=== PATIENT | female | born 1945 | race Caucasian/White ===

== ENCOUNTER → 2017-06-09 | Outpatient (CLI) | payer OTHER ==
[~2017-06-09] MED LIST: ALEN70TA2 PO; APR25 PO; ASPI81CH2 PO; ATOR-26 PO; CHOL1TAB42 PO; CLOP1TAB15 PO; CZR50 PO; LEVO100T7 PO; METO25TA56 PO; MIRT15TA2 PO; NTRGSL/4 UT; PANT40TA PO; TRAM-10 PO
--- NOTE | 2017-06-09 15:18 | MAMMOGRAPHY REPORT ---
BILATERAL DIGITAL SCREENING MAMMOGRAM TOMOSYNTHESIS WITH CAD: 06/09/2017 CLINICAL HISTORY: Routine screening. Patient has no complaints. TECHNIQUE: Breast tomosynthesis in addition to standard 2D mammography was performed. Current study was also evaluated with a Computer Aided Detection (CAD) system. COMPARISON: Comparison is made to exams dated: 01/18/2014 mammogram, 08/04/2012 mammogram, 05/10/2009 ma mmogram - [facility], 12/14/2007, 03/11/2006 mammogram, and 06/20/2004 mammogram - [facility]. BREAST COMPOSITION: There are scattered areas of fibroglandular density in both breasts. FINDINGS: There is a stable 3 mm circumscribed mass in the upper outer middle one third of the left breast, that is stable in size dating back to at least 01/18/2014 and also likely 05/10/2009, most li jennifer an intramammary lymph node. There are scattered stable benign-appearing microcalcifications svitlana aterally. No suspicious mass, architectural distortion or cluster of suspicious microcalcifications is seen. IMPRESSION: ACR BI-RADS CATEGORY 1: NEGATIVE There is no mammographic evidence of malignancy. A 1 year screening mammogram is recommended. The pa tient will receive written notification of the results. Approximately 10% of breast cancers are not detected with mammography. A negative mammographic report should not delay biopsy if a clinically suggestive mass is present. Katelyn Payne M.D. ay/:06/09/2017 12:12:20 Client Support Associate: Aniyah LEWIS)([place]), [facility] letter sent: Normal 1/2 BI-RADS Code: ACR BI-RADS Category 1: Negative
== END | disposition home or self-care (01) ==
LOC: C.MAMM 09:40
PROVIDERS: ATTEND Family Medicine
DX: Z12.31 Encounter for screening mammogram for malignant neoplasm of breast (principal)

== ENCOUNTER → 2017-07-15 | Day surgery (SDC) | payer OTHER ==
[2017-07-11 09:20] VITALS: Ht 157.5 cm; Wt 65.9 kg
[~2017-07-15] VITALS: Ht 157.5 cm; Wt 65.9 kg
[~2017-07-15] MED LIST changes: -CZR50 PO; +FERRTAB18 PO; +LIDOCAINE HCL 2% 2 ML VIAL (20MG/ML) ONE; +LOSA1TAB38 PO; +PROPOFOL IV EMULSION 10 MG/ML 20 ML VIAL IV ONE; +SODIUM CHLORIDE 0.9% 500ML 500 ML IV ONE; -TRAM-10 PO
--- NOTE | 2017-07-15 11:27 | Endo History and Physical ---
History & Physical Date of Service: Jul 15, 2017. Chief Complaint: iron deficiency anemia Referring Physician: Dr. Galindo History of Present Illness iron def anemia Past Medical History Angioplasty/Stent, ASHD, Reflux, High Cholesterol, Sleep Apnea, Heart Disease, Hypertension, Thyroid Disease, Depression Past Surgical History Hx Cardiac Surgery: Yes (HEART CATH, X1 STENT) Hx Internal Defibrillator: No Hx Pacemaker: No Hx Abdominal Surgery: Yes (LAP ZOE) Hx of Implantable Prosthesis: No Hx Post-Op Nausea and Vomiting: No Hx Cancer Surgery: No Hx Thoracic Surgery: No Hx Orthopedic: No Hx Urinary Tract Surgery: No Family History None Social History Smoking Status: Former Smoker Hx Substance Use: No Hx Alcohol Use: No Allergies Coded Allergies: Lisinopril (Verified Adverse Reaction, Unknown, COUGH, 07/15/17) Current Medications Reported Home Medications Medications Dose Route/Sig Max Daily Dose Days Date Category Vitron-C (Iron-Vitamin C) 1 Tab Tab 1 Tab PO BID 07/11/17 Reported Cozaar (Losartan Potassium) 100 Mg Tab 100 Mg PO QAM 07/11/17 Reported Vitamin D (Cholecalciferol) 5,000 Unit Tab 1 Tab PO QAM 11/17/15 Reported Fosamax (Alendronate Sodium) 70 Mg Tab 70 Mg PO WK 11/17/15 Reported Levothyroxine Sodium 100 Mcg Tab 1 Tab PO QAM 11/17/15 Reported Aspirin 81 Mg Chw 81 Mg PO QAM 06/14/14 Reported Protonix (Pantoprazole Sodium) 40 Mg Tab 40 Mg PO QAM 02/15/13 Reported Apresoline (Hydralazine Hcl) 25 Mg Tab 25 Mg PO TID 02/15/13 Reported Remeron Soltab (Mirtazapine) 15 Mg Soltab 15 Mg PO HS 02/15/13 Reported Lopressor (Metoprolol Tartrate) 25 Mg Tab 12.5 Mg PO BID 02/15/13 Reported Nitrostat (Nitroglycerin) 0.4 Mg Tab 0.4 Mg UT UD PRN 07/25/10 Reported Plavix (Clopidogrel Bisulfate) 75 Mg Tab 75 Mg PO QAM 07/25/10 Reported Lipitor (Atorvastatin Calcium) 80 Mg Tab 80 Mg PO HS 07/25/10 Reported Vital Signs Weight (Kilograms): 65.91 Height (Feet): 5 Height (Inches): 2 Physical Exam General Appearance: WD/WN, no apparent distress Assessment and Plan EGD and colonoscopy today
--- NOTE | 2017-07-15 12:11 | GI REPORT ---
Procedure Date: 07/15/2017 11:23 AM Procedure: Upper GI endoscopy Indications: Iron deficiency anemia Medicines: Propofol per Anesthesia Complications: No immediate complications. Estimated blood loss: Minimal. Estimated Blood Loss: Estimated blood loss was minimal. Procedure: Pre-Anesthesia Assessment: - Prior to the procedure, a History and Physical was performed, and patient medications, allergies and sensitivities were reviewed. The patient's tolerance of previous anesthesia was reviewed. - The risks and benefits of the procedure and the sedation options and risks were discussed with the patient. All questions were answered and informed consent was obtained. - Patient identification and proposed procedure were verified prior to the procedure by the physician and the nurse. The procedure was verified in the pre-procedure area in the procedure room. - Mental Status Examination: alert and oriented. Airway Examination: normal oropharyngeal airway and neck mobility. Respiratory Examination: clear to auscultation. CV Examination: normal. Abdominal Examination: bowel sounds present, abdomen soft and non-tender, no masses or organomegaly noted. - ASA Grade Assessment: III - A patient with severe systemic disease. After obtaining informed consent, the endoscope was passed under direct vision. Throughout the procedure, the patient's blood pressure, pulse, and oxygen saturations were monitored continuously. The scope was introduced through the mouth, and advanced to the third part of duodenum. The upper GI endoscopy was accomplished without difficulty. The patient tolerated the procedure well. Findings: The esophagus was normal. The stomach was normal. Scalloped mucosa was found in the entire examined duodenum. Biopsies for histology were taken with a cold forceps for evaluation of celiac disease. Verification of patient identification for the specimen was done by the physician and nurse using the patient's name and date. Estimated blood loss was minimal. Impression: - Normal esophagus. - Normal stomach. - Scalloped mucosa was found in the duodenum, suspicious for celiac disease. Biopsied. Recommendation: - Await pathology results. - Perform a colonoscopy today. Randa Ricci D.O. Randa Ricci, 07/15/2017 12:11:12 PM This report has been signed electronically. Note Initiated On: 07/15/2017 11:23 AM I attest to the content of the Intraoperative Record and orders documented therein, exceptions below
--- NOTE | 2017-07-15 12:14 | GI REPORT ---
Procedure Date: 07/15/2017 11:23 AM Procedure: Colonoscopy Indications: Iron deficiency anemia Medicines: Propofol per Anesthesia Complications: No immediate complications. Estimated blood loss: None. Estimated Blood Loss: Estimated blood loss: none. Procedure: Pre-Anesthesia Assessment: - Prior to the procedure, a History and Physical was performed, and patient medications, allergies and sensitivities were reviewed. The patient's tolerance of previous anesthesia was reviewed. - The risks and benefits of the procedure and the sedation options and risks were discussed with the patient. All questions were answered and informed consent was obtained. - Patient identification and proposed procedure were verified prior to the procedure by the physician and the nurse. The procedure was verified in the pre-procedure area in the procedure room. - Mental Status Examination: alert and oriented. Airway Examination: normal oropharyngeal airway and neck mobility. Respiratory Examination: clear to auscultation. CV Examination: normal. Abdominal Examination: bowel sounds present, abdomen soft and non-tender, no masses or organomegaly noted. - ASA Grade Assessment: III - A patient with severe systemic disease. After I obtained informed consent, the scope was passed under direct vision. Throughout the procedure, the patient's blood pressure, pulse, and oxygen saturations were monitored continuously. The scope was introduced through the anus and advanced to the terminal ileum. The colonoscopy was performed without difficulty. The patient tolerated the procedure well. The quality of the bowel preparation was good. Findings: The perianal and digital rectal examinations were normal. Pertinent negatives include normal sphincter tone and no palpable rectal lesions. The terminal ileum appeared normal. The entire examined colon appeared normal on direct and retroflexion views. Impression: - The examined portion of the ileum was normal. - The entire examined colon is normal on direct and retroflexion views. - No specimens collected. Recommendation: - Return to referring physician as previously scheduled. - Discharge patient to home. Randa Ricci D.O. Randa Ricci DO 07/15/2017 12:13:20 PM This report has been signed electronically. Note Initiated On: 07/15/2017 11:23 AM I attest to the content of the Intraoperative Record and orders documented therein, exceptions below
--- NOTE | 2017-07-15 12:16 | Discharge Instructions ---
Endoscopy Patient Instructions Date / Procedure(s) Performed Jul 15, 2017. Colonoscopy, EGD Allergy Information Coded Allergies: Lisinopril (Verified Adverse Reaction, Unknown, COUGH, 07/15/17) Discharge Date / Findings Jul 15, 2017. small bowel suspicious for celiac disease Normal colon Medication Instructions Stopped Medication(s): PATIENT COULD NOT VERBALIZE WHICH MEDS Restart Stopped Medication(s): OK to resume home medications Provider Instructions Activity Restrictions - No exercising or heavy lifting for 24 hours. - Do not drink alcohol the day of the procedure. - Do not drive a car or operate machinery until the day after the procedure. - Do not make any important decisions or sign important papers in 24 hours after the procedure. Following Day: - Return to full activity which may include returning to work/school. Diet Start your diet with liquids and light foods (jello, soup, juice, toast). Then eat your usual diet if not nauseated. Treatment For Common After Affects For mild abdominal pain, bloating, or excessive gas: - Rest - Eat lightly - Lie on right side Follow-Up Information Follow-up with Dr. Galindo as scheduled Anesthesia Information What You Should Know You have had a procedure that required some medicine to reduce anxiety and discomfort. This treatment is called moderate sedation. After receiving the treatment, you may be sleepy, but you will be able to breathe on your own. The effects of the treatment may last for several hours. Follow these instructions along with Activity/Diet recommendations noted above: * Do NOT do anything where dizziness or clumsiness would be dangerous. * Rest quietly at home today, then you can be up and about tomorrow. * Have a responsible person stay with you the rest of today. * You may have had an I.V. today. If so, you may take the dressing off later today. Recommendations Call your doctor if: * Trouble breathing * Continuous vomiting for more than 24 hours * Temperature above 101 degrees * Severe abdominal pain or bloating * Pain not relieved by pain medicine ordered * There is increased drainage or redness from any incision * A large amount of rectal bleeding greater than 2-3 tablespoons. (If you had a polyp/s removed or have hemorrhoids, a small amount of blood - from the rectum is to be expected.) * You have any unanswered questions or concerns. IN THE EVENT OF A SERIOUS EMERGENCY, GO TO THE NEAREST EMERGENCY ROOM Your discharge instructions were prepared by provider Randa Ricci. Patient Instructions Signature Page Kelley Valles Patient (or Guardian) Signature/Date: I have read and understand the instructions given to me by my caregivers. Caregiver/RN/Doctor Signature/Date: The above-named patient and/or guardian has received patient instructions on this date. + Original Patient Signature Page (only) stays with chart. Please make copy for patient.
[2017-07-15 12:44] VITALS: BP 129/65; PULSE 52; O2SAT 97
--- NOTE | 2017-07-15 14:00 | Anesthesiology Progress Note ---
Anesthesia Post Op Note Date & Time Jul 15, 2017 at 14:00 Vital Signs Pain Intensity: 0 Vital Signs Past 12 Hours Date Time Temp Pulse Resp B/P (MAP) Pulse Ox O2 Delivery O2 Flow Rate FiO2 07/15/17 12:44 52 16 129/65 (86) 97 Room Air 07/15/17 12:29 56 16 99/49 (66) 98 Room Air 07/15/17 12:14 57 16 94/48 (63) 98 Room Air 07/15/17 11:26 56 16 135/76 (95) 99 Room Air Notes Mental Status: alert / awake / arousable, participated in evaluation Pt Amnestic to Procedure: Yes Nausea / Vomiting: adequately controlled Pain: adequately controlled Airway Patency, RR, SpO2: stable & adequate BP & HR: stable & adequate Hydration State: stable & adequate Anesthetic Complications: no major complications apparent
== END | disposition home or self-care (01) ==
LOC: C.GI 10:52
PROVIDERS: ATTEND Internal Medicine
DX: E61.1 Iron deficiency (principal); I10 Essential (primary) hypertension; Z95.5 Presence of coronary angioplasty implant and graft; F32.9 Major depressive disorder, single episode, unspecified; E07.9 Disorder of thyroid, unspecified; K21.9 Gastro-esophageal reflux disease without esophagitis; I25.2 Old myocardial infarction; Z90.49 Acquired absence of other specified parts of digestive tract; Z87.891 Personal history of nicotine dependence; Z79.899 Other long term (current) drug therapy; Z98.41 Cataract extraction status, right eye; Z98.42 Cataract extraction status, left eye; Z79.82 Long term (current) use of aspirin; Z79.02 Long term (current) use of antithrombotics/antiplatelets

== ENCOUNTER 2020-07-11 20:17 | Observation (INO) ==
--- OUTSIDE RECORDS SUMMARY | 2020-07-11 20:19 | External Medical Summary | Continuity of Care Document ---
:1945 Author Name Henrietta Maddox, Provider Address Unavailable Unavailable , Care Team Providers Name Role Phone Vandana Maddox, Jose Guadalupe Unavailable [email or web address] Cardoza Unavailable Unavailable Unavailable Unavailable Unavailable Problems Active medical history not documented Allergies and Adverse Reactions Allergy history not documented Medications Medications not documented Procedures Procedures not documented Immunizations Immunizations not documented Plan of Treatment Planned Observations Planned Goals not documented Results No Known Results Results not documented
--- OUTSIDE RECORDS SUMMARY | 2020-07-11 20:20 | External Medical Summary | Continuity of Care Document ---
:1945 Author Name Henrietta Maddox, Provider Address Unavailable Unavailable , Care Team Providers Name Role Phone Vandana Maddox, Jose Guadalupe Unavailable [email or web address] Unavailable Unavailable Unavailable Unavailable Unavailable Problems Active medical history not documented Allergies and Adverse Reactions Allergy history not documented Medications Medications not documented Procedures Procedures not documented Immunizations Immunizations not documented Plan of Treatment Planned Observations Planned Goals not documented Results No Known Results Results not documented
[2020-07-11 21:13] LABS: Basophils # (auto) 0.04 K/uL (0-0.2); Basophils % (auto) 0.5 %; Eosinophils # (auto) 0.05 K/uL (0-0.5); Eosinophils % (auto) 0.6 %; Hematocrit (blood only) 39.2 % (37-47); Hemoglobin 12.3 g/dL (12.0-16.0); Immature Granulocytes # (auto) 0.01 K/uL (0.00-0.02); Immature Granulocytes % (auto) 0.1 %; Lymphocytes # (auto) 1.87 K/uL (1.2-3.4); Lymphocytes % (auto) 23.7 %; Mean Corpuscular Hemoglobin 24.5 pg (25-34); Mean Corpuscular Hgb Conc 31.4 g/dL (32-36); Mean Corpuscular Volume 77.9 fL (80-100); Mean Platelet Volume 11.2 fL (7.4-10.4); Monocytes # (auto) 0.78 K/uL (0.11-0.59); Monocytes % (auto) 9.9 %; Neutrophils # (auto) 5.15 K/uL (1.4-6.5); Neutrophils % (auto) 65.2 %; Platelet Count 250 K/uL (130-400); RDW Coefficient of Variation 16.9 % (11.5-14.5); RDW Standard Deviation 48.1 fL (36.4-46.3); Red Blood Count 5.03 M/uL (4.2-5.4)
[2020-07-11 21:21] LABS: Alanine Aminotransferase 24 U/L (12-78); Albumin Level 3.4 gm/dl (3.4-5.0); Aspartate Aminotransferase 17 U/L (15-37); BUN Creatinine Ratio 18.7 (10-20); Blood Urea Nitrogen 13 mg/dl (7-18); Calcium 9.4 mg/dl (8.5-10.1); Carbon Dioxide 26 mmol/L (21-32); Chloride 107 mmol/L (98-107); Creatinine Clr Calc Pharmacy 57.4 ml/min; Est GFR (Non-African American) 84.6; Glucose 84 mg/dl (70-99); Potassium 3.6 mmol/L (3.5-5.1); Sodium 139 mmol/L (136-145)
[2020-07-11 21:25] LABS: Alkaline Phosphatase 91 U/L (45-117); Bilirubin,Total 0.4 mg/dl (0.2-1); Globulin 3.5 gm/dl (2.5-4.0); Total Protein 6.9 gm/dl (6.4-8.2); Troponin I < 0.015 ng/ml (0-0.045)
[2020-07-11 21:35] LABS: INR 1.1 (0.9-1.1); Partial Thromboplastin Ratio 1.1; Partial Thromboplastin Time 29.1 Seconds (21.0-31.0); Prothrombin Time 10.9 Seconds (9.0-12.0)
[2020-07-11] MEDS ORDERED: ASPIRIN CHEW 324 MG PO STA (21:37)
[2020-07-11] MEDS ORDERED: NITROGLYCERIN 2% OINTMENT 30GM TUBE EXT STA (21:37)
--- NOTE | 2020-07-11 21:37 | Emergency Department Note ---
Impression & Plan Chest pain ED Provider Note INFORMANT: Patient ED PROVIDER(S): Orville Garcia MD CHIEF COMPLAINT: Chest pain PLAN: Disposition: Admitted Condition: Good Outpatient prescription management: none Referral: None MEDICAL DECISION MAKING: Patient presented with concerning history of chest pain. She has known coronary disease. She is a smoker. Her ECG and laboratory testing did not reveal any obvious findings. The patient had a negative chest x-ray for any acute disease. I discussed further management in the hospital. She was given Nitropaste and aspirin. Consultation was made with Dr. Donte Santoyo, [facility] hospitalist service. The patient was evaluated in the ER admitted for further management. Triage Nursing notes reviewed and agree them. Additional history obtained from family Vital Signs: reviewed and remarkable for hypertension Differential diagnosis: Cardiac ischemia, aortic dissection, pulmonary embolism, pneumothorax, pneumonia, pericarditis, myocarditis, esophageal rupture, GERD, cholecystitis, pancreatitis, musculoskeletal, as well as other pathologies. Diagnostics interpreted by me: ECG: Twelve-lead ECG reveals sinus rhythm at 65 bpm. PACs present. No ST elevation or depression. Normal QRS and axis. Cardiac Monitoring: Cardiac monitoring ordered by me: The patient was placed on continuous cardiac monitoring and observed. It revealed a normal sinus rhythm at 61 beats per minute without ectopy or evidence of dysrhythmia. Imaging studies: Chest x-ray. Findings: A chest x-ray was performed and revealed no pneumothorax, effusion, infiltrate, pulmonary edema, free air under the diaphragm, or wide mediastinum. Impression: No acute disease. [facility]: The patient is a 75 year old female who presents to the Emergency Room with complaints of chest pain, substernal. This started yesterday and is fluctuating. The patient also notes the following associated symptoms, chills. The patient has taken no medication for relieving factors. Current pain is rated as 0/10. Pain at home was 5/10 Pt denies LOC, headache, fevers, chills, diaphoresis, visual changes, neck pain, breathing difficulties, nausea, vomiting, abdominal pain, back pain, melena, hematochezia, urinary symptoms, numbness, weakness, lymphadenopathy, rash, or other complaints. ROS: See above HPI for pertinent positives & negatives. A total of 10 systems reviewed and were otherwise negative. PAST MEDICAL HISTORY:See Below , CAD PAST SURGICAL HISTORY:See Below, stent FAMILY HISTORY:See Below SOCIAL HISTORY:See Below, +tobacco HOME MEDICATIONS:See Below ALLERGIES:See Below VITALS:See Below PHYSICAL EXAMINATION: GENERAL: Awake, alert, well-appearing, in no distress HENT: Normocephalic, atraumatic. Oropharynx unremarkable. EYES: Normal conjunctiva. Sclera non-icteric. NECK: Inspection normal. Non-tender. Supple. No nuchal rigidity. FROM. No m asses. RESPIRATORY: Clear to auscultation. No wheezes. No rales. Normal respiratory effort. CARDIAC: Normal rate. Normal rhythm. No murmurs. No rubs. Extremities warm and well perfused. Pulses equal. No JVD. GI: Soft, non-distended. No tenderness to palpation. No rebound or guarding. No masses. RECTAL: Deferred. MUSCULOSKELETAL: Atraumatic. Chest examination reveals no tenderness. The back is symmetrical on inspection without obvious abnormality. There is no CVA tenderness to palpation. No joint edema. LOWER EXTREMITIES: Calves are equal size bilaterally and non-tender. No edema. No discoloration. NEURO: Normal sensorium. No sensory or motor deficits noted. SKIN: No rash or jaundice noted. Orville Garcia MD Past Med/Surg History Social History Smoking Status: Current every day smoker Cigarettes Per Day: 8; Do You Dip or Chew Tobacco: No; Hx Alcohol Use: No Hx Substance Use: No Preferred Language: Malay Communication Ability: Effective Milk Treater Required: No Beliefs That Will Affect Care: None Current Living Situation: Alone Other Information That Helps Us Care for You: No Feels Safe at Home: Yes Safety Concerns: Feels Safe At This Time Assistive Devices: None Allergies Allergies Allergy/AdvReac Type Severity Reaction Status Date / Time lisinopril AdvReac Unknown Cough Verified 07/11/20 21:51 Home Meds Home Medications Medication Instructions Recorded Confirmed alendronate 70 mg PO WK 07/11/20 07/11/20 aspirin [Aspirin Low Dose] 81 mg PO QAM 07/11/20 07/11/20 atorvastatin 80 mg PO HS 07/11/20 07/11/20 ferrous sulfate [iron] 325 mg PO BIDM 07/11/20 07/11/20 levothyroxine 100 mcg PO QAM 07/11/20 07/11/20 losartan 100 mg PO QAM 07/11/20 07/11/20 metoprolol succinate 12.5 mg PO QAM 07/11/20 07/11/20 mirtazapine 15 mg PO HS 07/11/20 07/11/20 nitroglycerin 0.4 mg SUBLINGUAL DIRECTED PRN 07/11/20 07/11/20 pantoprazole 40 mg PO QAM 07/11/20 07/11/20 tramadol 50 mg PO DIRECTED PRN 07/11/20 07/11/20 Previous Rx's Medication Instructions Recorded hydralazine 75 mg PO TID 14 Days #126 tab 07/12/20 Results & Data (ED) Vital Signs Vital Signs - 24 hr 07/11/20 20:20 07/11/20 21:01 Temperature 36.5 C Temperature Source Temporal Artery Scan Pulse Rate 69 Respiratory Rate 24 Blood Pressure 203/84 H Blood Pressure Mean 123 Pulse Oximetry 99 Oxygen Delivery Method Room Air Room Air Sepsis New/Unexplained Change in Mental Status N/A Sepsis Action Taken by Nursing No Action Required Laboratory Data Result diagrams: 07/12/20 05:38 07/12/20 05:38 Lab Results 07/11/20 07/11/20 07/11/20 Range/Units 20:58 20:58 20:58 WBC 7.90 (4.8-10.8) K/uL RBC 5.03 (4.2-5.4) M/uL Hgb 12.3 (12.0-16.0) g/dL Hct 39.2 (37-47) % MCV 77.9 L (80-100) fL MCH 24.5 L (25-34) pg MCHC 31.4 L (32-36) g/dL RDW Std Deviation 48.1 H (36.4-46.3) fL RDW Coeff of Madeleine 16.9 H (11.5-14.5) % Plt Count 250 (130-400) K/uL MPV 11.2 H (7.4-10.4) fL Immature Gran % (Auto) 0.1 % Neut % (Auto) 65.2 % Lymph % (Auto) 23.7 % Campbell % (Auto) 9.9 % Eos % (Auto) 0.6 % Baso % (Auto) 0.5 % Neut # (Auto) 5.15 (1.4-6.5) K/uL Lymph # (Auto) 1.87 (1.2-3.4) K/uL Campbell # (Auto) 0.78 H (0.11-0.59) K/uL Eos # (Auto) 0.05 (0-0.5) K/uL Baso # (Auto) 0.04 (0-0.2) K/uL Immature Gran # (Auto) 0.01 (0.00-0.02) K/uL PT 10.9 (9.0-12.0) Seconds INR 1.1 (0.9-1.1) APTT 29.1 (21.0-31.0) Seconds PTT Ratio 1.1 Sodium 139 (136-145) mmol/L Potassium 3.6 (3.5-5.1) mmol/L Chloride 107 (98-107) mmol/L Carbon Dioxide 26 (21-32) mmol/L Anion Gap 5.0 (3-11) BUN 13 (7-18) mg/dl Creatinine 0.69 (0.6-1.2) mg/dl Est Cr Clr Drug Dosing 57.4 ml/min Est GFR ( Amer) 98.0 Est GFR (Non-Af Amer) 84.6 BUN/Creatinine Ratio 18.7 (10-20) Glucose 84 (70-99) mg/dl Calcium 9.4 (8.5-10.1) mg/dl Magnesium (1.8-2.4) mg/dl Total Bilirubin 0.4 (0.2-1) mg/dl AST 17 (15-37) U/L ALT 24 (12-78) U/L Alkaline Phosphatase 91 (45-117) U/L Troponin I < 0.015 (0-0.045) ng/ml Total Protein 6.9 (6.4-8.2) gm/dl Albumin 3.4 (3.4-5.0) gm/dl Globulin 3.5 (2.5-4.0) gm/dl Albumin/Globulin Ratio 1.0 (0.9-2) Lipase (73-393) U/L COVID-19 Eval Order SARS-CoV-2, RNA, NAAT (NEGATIVE) 03/07/11/20 07/11/20 Range/Units 20:58 22:21 22:21 WBC (4.8-10.8) K/uL RBC (4.2-5.4) M/uL Hgb (12.0-16.0) g/dL Hct (37-47) % MCV (80-100) fL MCH (25-34) pg MCHC (32-36) g/dL RDW Std Deviation (36.4-46.3) fL RDW Coeff of Madeleine (11.5-14.5) % Plt Count (130-400) K/uL MPV (7.4-10.4) fL Immature Gran % (Auto) % Neut % (Auto) % Lymph % (Auto) % Campbell % (Auto) % Eos % (Auto) % Baso % (Auto) % Neut # (Auto) (1.4-6.5) K/uL Lymph # (Auto) (1.2-3.4) K/uL Campbell # (Auto) (0.11-0.59) K/uL Eos # (Auto) (0-0.5) K/uL Baso # (Auto) (0-0.2) K/uL Immature Gran # (Auto) (0.00-0.02) K/uL PT (9.0-12.0) Seconds INR (0.9-1.1) APTT (21.0-31.0) Seconds PTT Ratio Sodium (136-145) mmol/L Potassium (3.5-5.1) mmol/L Chloride (98-107) mmol/L Carbon Dioxide (21-32) mmol/L Anion Gap (3-11) BUN (7-18) mg/dl Creatinine (0.6-1.2) mg/dl Est Cr Clr Drug Dosing ml/min Est GFR ( Amer) Est GFR (Non-Af Amer) BUN/Creatinine Ratio (10-20) Glucose (70-99) mg/dl Calcium (8.5-10.1) mg/dl Magnesium 1.9 (1.8-2.4) mg/dl Total Bilirubin (0.2-1) mg/dl AST (15-37) U/L ALT (12-78) U/L Alkaline Phosphatase (45-117) U/L Troponin I (0-0.045) ng/ml Total Protein (6.4-8.2) gm/dl Albumin (3.4-5.0) gm/dl Globulin (2.5-4.0) gm/dl Albumin/Globulin Ratio (0.9-2) Lipase 175 (73-393) U/L COVID-19 Eval Order Covid19 IDNow atMUTC SARS-CoV-2, RNA, NAAT NEGATIVE (NEGATIVE) Administered Medications Discontinued Medications Aspirin (Aspirin Chew 324 Mg) 243 mg PO NOW STA Stop: 07/11/20 21:38 Last Admin: 07/11/20 22:17 Dose: 243 mg Documented by: [id number] Aspirin (Aspirin 81 Mg Ectab) 81 mg PO QAM [facility] Stop: 08/11/20 08:59 Last Admin: 07/12/20 07:54 Dose: 81 mg Documented by: [id number] Enoxaparin Sodium (Enoxaparin Inj 30 Mg/0.3 Ml Syr) 30 mg SQ QAM [facility] Stop: 08/11/20 08:59 Last Admin: 07/12/20 07:55 Dose: 30 mg Documented by: [id number] Ferrous Sulfate (Ferrous Sulfate 325 Mg Tab) 325 mg PO BIDM [facility] Stop: 08/11/20 07:59 Last Admin: 07/12/20 07:55 Dose: 325 mg Documented by: [id number] Hydralazine HCl (Hydralazine Tab 50 Mg Tab) 50 mg PO NOW STA Stop: 07/11/20 22:22 Last Admin: 07/11/20 23:09 Dose: 50 mg Documented by: [id number] Hydralazine HCl (Hydralazine Tab 50 Mg Tab) 50 mg PO TID [place] Stop: 08/11/20 08:59 Last Admin: 07/12/20 07:53 Dose: 50 mg Documented by: [id number] Hydralazine HCl (Hydralazine Hcl 25 Mg Tab) 75 mg PO TID [facility] Stop: 08/11/20 13:59 Last Admin: 07/12/20 13:36 Dose: 75 mg Documented by: [id number] Hydralazine HCl (Hydralazine Hcl 25 Mg Tab) 25 mg PO NOW STA Stop: 07/12/20 10:15 Last Admin: 07/12/20 10:40 Dose: 25 mg Documented by: [id number] Potassium Chloride 40 meq/ (Dextrose/Sodium Chloride) 1,020 mls @ 40 mls/hr IV .Q24H [facility] Stop: 08/11/20 00:53 Last Admin: 07/12/20 01:31 Dose: 40 mls/hr Documented by: [id number] Levothyroxine Sodium (Levothyroxine Sodium 100 Mcg Tablet) 100 mcg PO DAILYBB [facility] Stop: 08/11/20 06:29 Last Admin: 07/12/20 05:46 Dose: 100 mcg Documented by: [id number] Losartan Potassium (Losartan Potassium 50 Mg Tab) [facility]: 08/11/20 01:04 Last Admin: 07/12/20 01:52 Dose: 100 mg Documented by: [id number] Metoprolol Succinate (Metoprolol Succ 25mg Ext Rel Tab) 12.5 mg PO [facility] Stop: 08/11/20 08:59 Last Admin: 07/12/20 07:54 Dose: 12.5 mg Documented by: [id number] Mirtazapine (Mirtazapine Tab 15 Mg Tab) 15 mg PO [facility] Stop: 08/11/20 00:53 Last Admin: 07/12/20 01:52 Dose: 15 mg Documented by: [id number] Nitroglycerin (Nitroglycerin 2% Ointment 30gm Tube) 0.5 inch EXT NOW STA Stop: 07/11/20 21:38 Last Admin: 07/11/20 22:17 Dose: 0.5 inch Documented by: [id number] Pantoprazole Sodium (Pantoprazole 40 Mg Tab) [facility]: 08/11/20 01:04 Last Admin: 07/12/20 01:52 Dose: 40 mg Documented by: [id number] Discharge Plan Visit Data Chief Complaint: Chest Pain Stated Complaint: CHEST PAIN, ARM PAIN ED Provider: Orville Garcia Discharge Problem: Chest pain Patient Disposition: Admitted As Inpatient Discharge Instructions Interventions: ED Discharge Assessment Last Done: 07/12/20 00:08
[2020-07-11 22:03] LABS: Magnesium 1.9 mg/dl (1.8-2.4)
[2020-07-11] MEDS ORDERED: hydrALAZINE TAB 50 MG TAB PO STA (22:21)
--- NOTE | 2020-07-11 22:24 | History & Physical Report ---
Date of Service July 11, 2020 Assessment & Plan (1) Chest pain: Possibly secondary to hypertensive crisis Rule out ACS History CAD sp stent diastolic dysfunction as per records, patient euvolemic hx PVD LORENA (CPAP intolerance) hypothyroidism, euthyroid as of recent outpatient TSH ongoing tobacco abuse OBS PCU Continue home aspirin for CAD prevention Titrate home BP meds Follow troponin IV heparin if with troponin progression Cardiology consult RE chest pain, history of CAD N.p.o. after midnight in anticipation of procedure Patient to discuss with PCP about follow-up referral with sleep medicine to discuss newer options for LORENA given claustrophobia from old CPAP machines. Nicotine patch as needed DVT prophylaxis per Lovenox subcu Full code Patient son requesting updates from providers. Mr. Teddy Valles, contact #[phone]. Text document was generated using [employer] voice recognition software. It may contain grammatical or spelling errors. Kindly contact undersigned for clarification of any documentation item in question. History of Present Illness Chief Complaint: Chest pain Primary Care Provider: Dr. Lala History obtained from patient, family, and records. Medical history significant for diastolic dysfunction as per records, CAD status post stent, PVD as per records, PFO as per records, hypertension, hyperlipidemia, LORENA (CPAP intolerance), GERD, hypothyroidism, ongoing tobacco abuse. Last confinement June [address] [place]. Found to have LAD occlusion status post JOY placement. 1 day history of substernal discomfort, indigestion-like not exactly like episode from past heart attack, somewhat different from reflux. No cough, no S OB. SBP 200s at the ER. Patient does not check blood pressure at home. Denies unusual stress. Compliant with home medications. Denies OTC NSAID intake, dietary indiscretion. Spontaneous resolution of chest pain at the ER. Patient refused nitro medication prescribed by ER provider. Medical History as above Surgical History : BTL, laryngeal polyp removal, cataract surgery, cholecystectomy Family History : Breast cancer, stomach cancer, heart disease, MS Personal/Social history : 8 cigarettes a day, no EtOH intake, homemaker in her younger years Allergies Allergy/AdvReac Type Severity Reaction Status Date / Time lisinopril AdvReac Unknown Cough Verified 07/11/20 21:51 Home Medications Medication Instructions Recorded Confirmed Type alendronate 70 mg PO WK 07/11/20 07/11/20 History aspirin [Aspirin Low Dose] 81 mg PO QAM 07/11/20 07/11/20 History atorvastatin 80 mg PO HS 07/11/20 07/11/20 History ferrous sulfate [iron] 325 mg PO BIDM 07/11/20 07/11/20 History hydralazine 25 mg PO TID 07/11/20 07/11/20 History levothyroxine 100 mcg PO QAM 07/11/20 07/11/20 History losartan 100 mg PO QAM 07/11/20 07/11/20 History metoprolol succinate 12.5 mg PO QAM 07/11/20 07/11/20 History mirtazapine 15 mg PO HS 07/11/20 07/11/20 History nitroglycerin 0.4 mg SUBLINGUAL DIRECTED PRN 07/11/20 07/11/20 History pantoprazole 40 mg PO QAM 07/11/20 07/11/20 History tramadol 50 mg PO DIRECTED PRN 07/11/20 07/11/20 History Past Med/Surg History Social History Smoking Status: Current every day smoker Cigarettes Per Day: 8; Do You Dip or Chew Tobacco: No; Hx Alcohol Use: No Hx Substance Use: No Preferred Language: Latvian Communication Ability: Effective Shipyard Helper Required: No Beliefs That Will Affect Care: None Current Living Situation: Alone Other Information That Helps Us Care for You: No Feels Safe at Home: Yes Safety Concerns: Feels Safe At This Time Assistive Devices: Denture - Upper, Denture - Lower and Glasses Review of Systems Review of Systems: As per HPI, all 10 systems reviewed, all other ROS negative Physical Exam Physical Exam: GENERAL: Comfortable, pleasant, slightly anxious, no respiratory distress SKIN: Normal color, warm HEENT: Bespectacled, Dana palpebral conjunctivae, no ptosis, moist buccal mucosa NECK : Supple, no tenderness CHEST : Decreased breath sounds, no tenderness HEART : RRR, no obvious murmurs ABDOMEN: Some distention, nontender EXTREMITIES : No LE swelling/tenderness, no other conspicuous deformities noted NEUROLOGIC : Coherent, no facial asymmetry, no other gross focality Results & Data Results & Data ([facility]) Vital Signs (Past 12 Hours) Vital Signs Temp Pulse Resp BP Pulse Ox 07/11/20 20:20 36.5 C 69 24 203/84 H 99 Laboratory Results Laboratory Results WBC 7.90 K/uL (4.8-10.8) 07/11/20 20:58 RBC 5.03 M/uL (4.2-5.4) 07/11/20 20:58 Hgb 12.3 g/dL (12.0-16.0) 07/11/20 20:58 Hct 39.2 % (37-47) 07/11/20 20:58 MCV 77.9 fL (80-100) L 07/11/20 20:58 MCH 24.5 pg (25-34) L 07/11/20 20:58 MCHC 31.4 g/dL (32-36) L 07/11/20 20:58 RDW Std Deviation 48.1 fL (36.4-46.3) H 07/11/20 20:58 RDW Coeff of Madeleine 16.9 % (11.5-14.5) H 07/11/20 20:58 Plt Count 250 K/uL (130-400) 07/11/20 20:58 MPV 11.2 fL (7.4-10.4) H 07/11/20 20:58 Immature Gran % (Auto) 0.1 % 07/11/20 20:58 Neut % (Auto) 65.2 % 07/11/20 20:58 Lymph % (Auto) 23.7 % 07/11/20 20:58 [place] % (Auto) 9.9 % 07/11/20 20:58 Eos % (Auto) 0.6 % 07/11/20 20:58 Baso % (Auto) 0.5 % 07/11/20 20:58 Neut # (Auto) 5.15 K/uL (1.4-6.5) 07/11/20 20:58 Lymph # (Auto) 1.87 K/uL (1.2-3.4) 07/11/20 20:58 [place] # (Auto) 0.78 K/uL (0.11-0.59) H 07/11/20 20:58 Eos # (Auto) 0.05 K/uL (0-0.5) 07/11/20 20:58 Baso # (Auto) 0.04 K/uL (0-0.2) 07/11/20 20:58 Immature Gran # (Auto) 0.01 K/uL (0.00-0.02) 07/11/20 20:58 PT 10.9 Seconds (9.0-12.0) 07/11/20 20:58 INR 1.1 (0.9-1.1) 07/11/20 20:58 APTT 29.1 Seconds (21.0-31.0) 07/11/20 20:58 PTT Ratio 1.1 07/11/20 20:58 Sodium 139 mmol/L (136-145) 07/11/20 20:58 Potassium 3.6 mmol/L (3.5-5.1) 07/11/20 20:58 Chloride 107 mmol/L (98-107) 07/11/20 20:58 Carbon Dioxide 26 mmol/L (21-32) 07/11/20 20:58 Anion Gap 5.0 (3-11) 07/11/20 20:58 BUN 13 mg/dl (7-18) 07/11/20 20:58 Creatinine 0.69 mg/dl (0.6-1.2) 07/11/20 20:58 Est Cr Clr Drug Dosing 57.4 ml/min 07/11/20 20:58 Est GFR ( Amer) 98.0 07/11/20 20:58 Est GFR (Non-Af Amer) 84.6 07/11/20 20:58 BUN/Creatinine Ratio 18.7 (10-20) 07/11/20 20:58 Glucose 84 mg/dl (70-99) 07/11/20 20:58 Calcium 9.4 mg/dl (8.5-10.1) 07/11/20 20:58 Magnesium 1.9 mg/dl (1.8-2.4) 07/11/20 20:58 Total Bilirubin 0.4 mg/dl (0.2-1) 07/11/20 20:58 AST 17 U/L (15-37) 07/11/20 20:58 ALT 24 U/L (12-78) 07/11/20 20:58 Alkaline Phosphatase 91 U/L (45-117) 07/11/20 20:58 Troponin I < 0.015 ng/ml (0-0.045) 07/11/20 20:58 Total Protein 6.9 gm/dl (6.4-8.2) 07/11/20 20:58 Albumin 3.4 gm/dl (3.4-5.0) 07/11/20 20:58 Globulin 3.5 gm/dl (2.5-4.0) 07/11/20 20:58 Albumin/Globulin Ratio 1.0 (0.9-2) 07/11/20 20:58 Diagnostic Findings Chest x-ray as per my interpretation borderline cardiomegaly EKG as per my interpretation : Rate 55, sinus bradycardia, normal axis, no ischemia
[2020-07-12] MEDS ORDERED: NITROGLYCERIN SL 0.4 MG/TAB TAB SL PRN (00:54)
[2020-07-12] MEDS ORDERED: MIRTAZAPINE TAB 15 MG TAB PO SCH (00:54)
[2020-07-12] MEDS ORDERED: ACETAMINOPHEN 325 MG TAB PO PRN (00:54)
[2020-07-12] MEDS ORDERED: traMADol HCL 50 MG TABLET PO PRN (00:54)
[2020-07-12] MEDS ORDERED: LORazepam 0.25 MG/0.5 ML VIAL IV PRN (00:54)
[2020-07-12] MEDS ORDERED: POTASSIUM CHLORIDE 40 MEQ in D5W AND NSS 1,000 ML IV SCH (00:54)
[2020-07-12] MEDS ORDERED: MoRPHine SULFATE 2 MG/ML CARP IV PRN (00:54)
[2020-07-12] MEDS ORDERED: PROMETHAZINE HCL 6.25 MG in SODIUM CHLORIDE 0.9% 50 ML IV PRN (00:54)
[2020-07-12] MEDS ORDERED: LOSARTAN POTASSIUM 50 MG TAB PO SCH ×2 (01:05→09:00)
[2020-07-12] MEDS ORDERED: PANTOprazole 40 MG TAB PO SCH ×2 (01:05→09:00)
[2020-07-12 05:59] LABS: Basophils # (auto) 0.02 K/uL (0-0.2); Basophils % (auto) 0.3 %; Eosinophils # (auto) 0.03 K/uL (0-0.5); Eosinophils % (auto) 0.5 %; Hematocrit (blood only) 36.9 % (37-47); Hemoglobin 11.5 g/dL (12.0-16.0); Immature Granulocytes # (auto) 0.01 K/uL (0.00-0.02); Immature Granulocytes % (auto) 0.2 %; Lymphocytes # (auto) 2.16 K/uL (1.2-3.4); Lymphocytes % (auto) 32.6 %; Mean Corpuscular Hemoglobin 24.1 pg (25-34); Mean Corpuscular Hgb Conc 31.2 g/dL (32-36); Mean Corpuscular Volume 77.4 fL (80-100); Mean Platelet Volume 10.6 fL (7.4-10.4); Monocytes # (auto) 0.67 K/uL (0.11-0.59); Monocytes % (auto) 10.1 %; Neutrophils # (auto) 3.74 K/uL (1.4-6.5); Neutrophils % (auto) 56.3 %; Platelet Count 245 K/uL (130-400); RDW Coefficient of Variation 16.6 % (11.5-14.5); RDW Standard Deviation 47.5 fL (36.4-46.3); Red Blood Count 4.77 M/uL (4.2-5.4); White Blood Count 6.63 K/uL (4.8-10.8)
[2020-07-12 06:06] LABS: Partial Thromboplastin Ratio 1.1; Partial Thromboplastin Time 28.3 Seconds (21.0-31.0)
[2020-07-12] MEDS ORDERED: LEVOTHYROXINE SODIUM 100 MCG TABLET PO SCH (06:30)
[2020-07-12 06:40] LABS: Calcium 8.2 mg/dl (8.5-10.1); Creatinine Clr Calc Pharmacy 67.1 ml/min; Est GFR (African American) 103.2; Potassium 3.7 mmol/L (3.5-5.1)
--- NOTE | 2020-07-12 07:54 | Hospitalist Progress Note ---
Date of Service July 12, 2020 Assessment & Plan (1) Chest pain: Secondary to hypertensive crisis Rule out ACS History CAD sp stent Continue home aspirin for CAD prevention Titrate home BP meds Troponin x3 negative Echo obtained -LV is normal in size, moderate concentric LVH, LV wall motion is normal, EF 65 to 70%. Grade 1 diastolic dysfunction. Aortic valve sclerosis mild, without significant aortic valvular stenosis. There is no other significant valvular disease. Cardiology consult RE chest pain, history of CAD Patient presented with hypertensive urgency associated with chest discomfort. Responded well to increased dose of hydralazine. Ischemic evaluation unremarkable with negative troponin, unremarkable EKG and no wall motion abnormality on echo. Recommend to discharge on increased dose of hydralazine 75 mg 3 times daily. Close follow-up with PCP and cardiology. Recommend BP checks at home. Diastolic dysfunction as per records, patient euvolemic Hx PVD LORENA - Patient to discuss with PCP about follow-up referral with sleep medicine to discuss newer options for LORENA given claustrophobia from old CPAP machines. Ongoing tobacco abuse - Nicotine patch as needed Hypothyroidism, euthyroid as of recent outpatient TSH DVT prophylaxis per Lovenox subcu Full code Patient's son ,Mr. Teddy Valles, can be reached at #[phone]. Admission and Anticipated Discharge Date Admission Date: July 11, 2020 Subjective Patient seen in follow-up of chest pain, hypertension/hypertensive urgency Currently she is lying in bed in no acute distress Denies any chest pain or shortness of breath, dizziness or lightheadedness Review of Systems Review of Systems: All systems reviewed & are unremarkable except as noted in HPI & below Constitutional: no fever and no chills Respiratory: no cough and no dyspnea Cardiovascular: no chest pain and no palpitations Gastrointestinal: no abdominal pain and no vomiting Physical Exam Physical Exam: GENERAL: Comfortable, pleasant female in no respiratory distress HEENT: NC/AT, Bespectacled, [place] palpebral conjunctivae, no ptosis, moist buccal mucosa NECK : Supple, no tenderness CHEST : CTAB, no tenderness HEART : RRR, + syst. murmur ABDOMEN: Some distention, nontender, nondistended, + bowel sounds EXTREMITIES : No LE swelling/tenderness, moves extremities spontaneously NEUROLOGIC : Alert and oriented x3, no facial asymmetry, no other gross focality, moves extremities spontaneously SKIN: Normal color, warm Results & Data Results & Data ([place]) Vital Signs (Past 12 Hours) Vital Signs Temp Pulse Pulse Resp BP BP BP 07/12/20 07:36 36.5 C 57 L 20 149/68 H 07/12/20 04:11 36.5 C 59 L 16 135/72 07/12/20 02:21 66 07/12/20 00:39 36.4 C L 65 20 180/74 H 07/11/20 20:20 36.5 C 69 24 203/84 H Pulse Ox 07/12/20 07:36 98 07/12/20 04:11 97 07/12/20 02:21 07/12/20 00:39 99 07/11/20 20:20 99 Laboratory Results 07/12/20 07/12/20 07/12/20 Range/Units 05:38 05:38 05:38 WBC (4.8-10.8) K/uL RBC (4.2-5.4) M/uL Hgb (12.0-16.0) g/dL Hct (37-47) % MCV (80-100) fL MCH (25-34) pg MCHC (32-36) g/dL RDW Std Deviation (36.4-46.3) fL RDW Coeff of Madeleine (11.5-14.5) % Plt Count (130-400) K/uL MPV (7.4-10.4) fL Immature Gran % (Auto) % Neut % (Auto) % Lymph % (Auto) % [place] % (Auto) % Eos % (Auto) % Baso % (Auto) % Neut # (Auto) (1.4-6.5) K/uL Lymph # (Auto) (1.2-3.4) K/uL [place] # (Auto) (0.11-0.59) K/uL Eos # (Auto) (0-0.5) K/uL Baso # (Auto) (0-0.2) K/uL Immature Gran # (Auto) (0.00-0.02) K/uL PT (9.0-12.0) Seconds INR (0.9-1.1) APTT 28.3 (21.0-31.0) Seconds PTT Ratio 1.1 Sodium 141 (136-145) mmol/L Potassium 3.7 (3.5-5.1) mmol/L Chloride 111 H (98-107) mmol/L Carbon Dioxide 28 (21-32) mmol/L Anion Gap 2.0 L (3-11) BUN 13 (7-18) mg/dl Creatinine 0.59 L (0.6-1.2) mg/dl Est Cr Clr Drug Dosing 67.1 ml/min Est GFR ( Amer) 103.2 Est GFR (Non-Af Amer) 89.0 BUN/Creatinine Ratio 22.0 H (10-20) Glucose 90 (70-99) mg/dl Calcium 8.2 L (8.5-10.1) mg/dl Magnesium (1.8-2.4) mg/dl Total Bilirubin (0.2-1) mg/dl AST (15-37) U/L ALT (12-78) U/L Alkaline Phosphatase (45-117) U/L Troponin I Pending (0-0.045) ng/ml Total Protein (6.4-8.2) gm/dl Albumin (3.4-5.0) gm/dl Globulin (2.5-4.0) gm/dl Albumin/Globulin Ratio (0.9-2) Triglycerides 79 (0-150) mg/dl Cholesterol 101 (0-200) mg/dl LDL Cholesterol, Calc 49 mg/dl VLDL Cholesterol, Calc 16 mg/dl HDL Cholesterol 36 mg/dl Cholesterol/HDL Ratio 3 Lipase (73-393) U/L COVID-19 Eval Order SARS-CoV-2, RNA, NAAT (NEGATIVE) 07/12/20 07/12/20 07/11/20 Range/Units 05:38 00:48 22:21 WBC 6.63 (4.8-10.8) K/uL RBC 4.77 (4.2-5.4) M/uL Hgb 11.5 L (12.0-16.0) g/dL Hct 36.9 L (37-47) % MCV 77.4 L (80-100) fL MCH 24.1 L (25-34) pg MCHC 31.2 L (32-36) g/dL RDW Std Deviation 47.5 H (36.4-46.3) fL RDW Coeff of Madeleine 16.6 H (11.5-14.5) % Plt Count 245 (130-400) K/uL MPV 10.6 H (7.4-10.4) fL Immature Gran % (Auto) 0.2 % Neut % (Auto) 56.3 % Lymph % (Auto) 32.6 % [place] % (Auto) 10.1 % Eos % (Auto) 0.5 % Baso % (Auto) 0.3 % Neut # (Auto) 3.74 (1.4-6.5) K/uL Lymph # (Auto) 2.16 (1.2-3.4) K/uL [place] # (Auto) 0.67 H (0.11-0.59) K/uL Eos # (Auto) 0.03 (0-0.5) K/uL Baso # (Auto) 0.02 (0-0.2) K/uL Immature Gran # (Auto) 0.01 (0.00-0.02) K/uL PT (9.0-12.0) Seconds INR (0.9-1.1) APTT (21.0-31.0) Seconds PTT Ratio Sodium (136-145) mmol/L Potassium (3.5-5.1) mmol/L Chloride (98-107) mmol/L Carbon Dioxide (21-32) mmol/L Anion Gap (3-11) BUN (7-18) mg/dl Creatinine (0.6-1.2) mg/dl Est Cr Clr Drug Dosing ml/min Est GFR ( Amer) Est GFR (Non-Af Amer) BUN/Creatinine Ratio (10-20) Glucose (70-99) mg/dl Calcium (8.5-10.1) mg/dl Magnesium (1.8-2.4) mg/dl Total Bilirubin (0.2-1) mg/dl AST (15-37) U/L ALT (12-78) U/L Alkaline Phosphatase (45-117) U/L Troponin I < 0.015 (0-0.045) ng/ml Total Protein (6.4-8.2) gm/dl Albumin (3.4-5.0) gm/dl Globulin (2.5-4.0) gm/dl Albumin/Globulin Ratio (0.9-2) Triglycerides (0-150) mg/dl Cholesterol (0-200) mg/dl LDL Cholesterol, Calc mg/dl VLDL Cholesterol, Calc mg/dl HDL Cholesterol mg/dl Cholesterol/HDL Ratio Lipase (73-393) U/L COVID-19 Eval Order SARS-CoV-2, RNA, NAAT NEGATIVE (NEGATIVE) 07/11/20 07/11/20 07/11/20 Range/Units 22:21 20:58 20:58 WBC (4.8-10.8) K/uL RBC (4.2-5.4) M/uL Hgb (12.0-16.0) g/dL Hct (37-47) % MCV (80-100) fL MCH (25-34) pg MCHC (32-36) g/dL RDW Std Deviation (36.4-46.3) fL RDW Coeff of Madeleine (11.5-14.5) % Plt Count (130-400) K/uL MPV (7.4-10.4) fL Immature Gran % (Auto) % Neut % (Auto) % Lymph % (Auto) % [place] % (Auto) % Eos % (Auto) % Baso % (Auto) % Neut # (Auto) (1.4-6.5) K/uL Lymph # (Auto) (1.2-3.4) K/uL [place] # (Auto) (0.11-0.59) K/uL Eos # (Auto) (0-0.5) K/uL Baso # (Auto) (0-0.2) K/uL Immature Gran # (Auto) (0.00-0.02) K/uL PT (9.0-12.0) Seconds INR (0.9-1.1) APTT (21.0-31.0) Seconds PTT Ratio Sodium 139 (136-145) mmol/L Potassium 3.6 (3.5-5.1) mmol/L Chloride 107 (98-107) mmol/L Carbon Dioxide 26 (21-32) mmol/L Anion Gap 5.0 (3-11) BUN 13 (7-18) mg/dl Creatinine 0.69 (0.6-1.2) mg/dl Est Cr Clr Drug Dosing 57.4 ml/min Est GFR ( Amer) 98.0 Est GFR (Non-Af Amer) 84.6 BUN/Creatinine Ratio 18.7 (10-20) Glucose 84 (70-99) mg/dl Calcium 9.4 (8.5-10.1) mg/dl Magnesium 1.9 (1.8-2.4) mg/dl Total Bilirubin 0.4 (0.2-1) mg/dl AST 17 (15-37) U/L ALT 24 (12-78) U/L Alkaline Phosphatase 91 (45-117) U/L Troponin I < 0.015 (0-0.045) ng/ml Total Protein 6.9 (6.4-8.2) gm/dl Albumin 3.4 (3.4-5.0) gm/dl Globulin 3.5 (2.5-4.0) gm/dl Albumin/Globulin Ratio 1.0 (0.9-2) Triglycerides (0-150) mg/dl Cholesterol (0-200) mg/dl LDL Cholesterol, Calc mg/dl VLDL Cholesterol, Calc mg/dl HDL Cholesterol mg/dl Cholesterol/HDL Ratio Lipase 175 (73-393) U/L COVID-19 Eval Order Covid19 [facility]Now [facility] SARS-CoV-2, RNA, NAAT (NEGATIVE) 07/11/20 07/11/20 Range/Units 20:58 20:58 WBC 7.90 (4.8-10.8) K/uL RBC 5.03 (4.2-5.4) M/uL Hgb 12.3 (12.0-16.0) g/dL Hct 39.2 (37-47) % MCV 77.9 L (80-100) fL MCH 24.5 L (25-34) pg MCHC 31.4 L (32-36) g/dL RDW Std Deviation 48.1 H (36.4-46.3) fL RDW Coeff of Madeleine 16.9 H (11.5-14.5) % Plt Count 250 (130-400) K/uL MPV 11.2 H (7.4-10.4) fL Immature Gran % (Auto) 0.1 % Neut % (Auto) 65.2 % Lymph % (Auto) 23.7 % [place] % (Auto) 9.9 % Eos % (Auto) 0.6 % Baso % (Auto) 0.5 % Neut # (Auto) 5.15 (1.4-6.5) K/uL Lymph # (Auto) 1.87 (1.2-3.4) K/uL [place] # (Auto) 0.78 H (0.11-0.59) K/uL Eos # (Auto) 0.05 (0-0.5) K/uL Baso # (Auto) 0.04 (0-0.2) K/uL Immature Gran # (Auto) 0.01 (0.00-0.02) K/uL PT 10.9 (9.0-12.0) Seconds INR 1.1 (0.9-1.1) APTT 29.1 (21.0-31.0) Seconds PTT Ratio 1.1 Sodium (136-145) mmol/L Potassium (3.5-5.1) mmol/L Chloride (98-107) mmol/L Carbon Dioxide (21-32) mmol/L Anion Gap (3-11) BUN (7-18) mg/dl Creatinine (0.6-1.2) mg/dl Est Cr Clr Drug Dosing ml/min Est GFR ( Amer) Est GFR (Non-Af Amer) BUN/Creatinine Ratio (10-20) Glucose (70-99) mg/dl Calcium (8.5-10.1) mg/dl Magnesium (1.8-2.4) mg/dl Total Bilirubin (0.2-1) mg/dl AST (15-37) U/L ALT (12-78) U/L Alkaline Phosphatase (45-117) U/L Troponin I (0-0.045) ng/ml Total Protein (6.4-8.2) gm/dl Albumin (3.4-5.0) gm/dl Globulin (2.5-4.0) gm/dl Albumin/Globulin Ratio (0.9-2) Triglycerides (0-150) mg/dl Cholesterol (0-200) mg/dl LDL Cholesterol, Calc mg/dl VLDL Cholesterol, Calc mg/dl HDL Cholesterol mg/dl Cholesterol/HDL Ratio Lipase (73-393) U/L COVID-19 Eval Order SARS-CoV-2, RNA, NAAT (NEGATIVE) Medications Administered Current Inpatient Medications Acetaminophen (Acetaminophen 325 Mg Tab) 650 mg PO Q4H PRN PRN Reason: Pain or Fever Stop: 08/11/20 00:53 Aspirin (Aspirin 81 Mg Ectab) 81 mg PO QAM [facility] Stop: 08/11/20 08:59 Atorvastatin Calcium (Atorvastatin 40 Mg Tab) 80 mg PO HS [facility] Stop: 08/11/20 20:59 Enoxaparin Sodium (Enoxaparin Inj 30 Mg/0.3 Ml Syr) 30 mg SQ QAM [facility] Stop: 08/11/20 08:59 Ferrous Sulfate (Ferrous Sulfate 325 Mg Tab) 325 mg PO BIDM [facility] Stop: 08/11/20 07:59 Hydralazine HCl (Hydralazine Tab 50 Mg Tab) 50 mg PO TID [facility] Stop: 08/11/20 08:59 Potassium Chloride 40 meq/ (Dextrose/Sodium Chloride) 1,020 mls @ 40 mls/hr IV .Q24H [facility] Stop: 08/11/20 00:53 Last Admin: 07/12/20 01:31 Dose: 40 mls/hr Documented by: Lorazepam (Ativan) 0.25 mg in 0.5 mls @ 0.5 mls/min IV Q4H PRN PRN Reason: Anxiety Stop: 08/11/20 00:53 Promethazine HCl 6.25 mg/ (Sodium Chloride) 50.25 mls @ 201 mls/hr IV Q6H PRN PRN Reason: Nausea And Vomiting Stop: 08/11/20 00:53 Levothyroxine Sodium (Levothyroxine Sodium 100 Mcg Tablet) 100 mcg PO DAILYBB [facility] Stop: 08/11/20 06:29 Last Admin: 07/12/20 05:46 Dose: 100 mcg Documented by: Losartan Potassium (Losartan Pot[facility] 50 Mg Tab) [facility] [place]: 08/11/20 01:04 Last Admin: 07/12/20 01:52 Dose: 100 mg Documented by: Metoprolol Succinate (Metoprolol Succ 25mg Ext Rel Tab) [facility] [place]: 08/11/20 08:59 Mirtazapine (Mirtazapine Tab 15 Mg Tab) 15 mg PO HS [facility] Stop: 08/11/20 00:53 Last Admin: 07/12/20 01:52 Dose: 15 mg Documented by: Morphine Sulfate (Morphine Sulfate 2 Mg/Ml Carp) 2 mg IV Q3H PRN PRN Reason: Pain Stop: 07/26/20 00:53 Nitroglycerin (Nitroglycerin Sl 0.4 Mg/Tab Tab) 0.4 mg SL UD PRN PRN Reason: Chest Pain Stop: 08/11/20 00:53 Pantoprazole Sodium (Pantoprazole 40 Mg Tab) 40 mg PO QAM [facility] Stop: 08/11/20 01:04 Last Admin: 07/12/20 01:52 Dose: 40 mg Documented by: Tramadol HCl (Tramadol Hcl 50 Mg Tablet) 25 - 50 mg PO Q4H PRN PRN Reason: Pain Stop: 08/11/20 00:53
[2020-07-12] MEDS ORDERED: FERROUS SULFATE 325 MG TAB PO SCH (08:00)
--- NOTE | 2020-07-12 08:12 | XRay Report ---
XR chest 1V portable CLINICAL HISTORY: Atypical chest pain. COMPARISON STUDY: Chest radiograph July 18, 2010. FINDINGS: Lung volumes are normal. Lungs are clear. There is no pneumothorax or pleural effusion. Mil d cardiomegaly is noted. Mediastinal contours are normal. There is no evidence for pulmonary edema. IMPRESSION: No acute cardiopulmonary findings. ACT 112: Negative or not required by law. Electronically signed by: Baron Nunez M.D. 07/12/2020 8:11 AM
--- NOTE | 2020-07-12 08:37 | Cardiology Consultation ---
Date of Consultation July 12, 2020 Assessment & Plan (1) Hypertensive urgency: (2) CAD (coronary artery disease): (3) Tobacco abuse: The patient presents with hypertensive urgency and associated chest discomfort. She initially responded well to increased dose of hydralazine and I will increase it further to 75 mg three times daily now. Ischemic evaluation is unremarkable with negative troponin, unremarkable EKG and no wall motion abnormalities on echocardiogram. She is very anxious for discharge and I would recommend that her blood pressure be rechecked this afternoon and should be well controlled she can be discharged to home on her current medical regimen. Follow-up with PCP in 1 week and Cardiology in 2 to 4 weeks. History of Present Illness Reason for Consultation: Chest pain/hypertensive urgency Requesting Physician: Dr. Mooney Attending Physician: Sanjiv Holden MD History of Present Illness this is she willing is a very pleasant 75-year-old woman who has been followed by Matt Galindo of our Cardiology practice in the past. She presents to [facility] on July 11, 2020 with complaints of chest discomfort. She described as a burning sensation similar to acid reflux. There is also some associated chest pressure with. She present to the emergency department and her blood pressure was significantly elevated with a systolic above 200. her hydralazine dose was increased and she was admitted to telemetry. She states that her discomfort resolved and her pressures improved overnight to the 140s to 150 systolic. Currently states she feels well and is very anxious for discharge. Past medical history as per most recent outpatient cardiology note: 1. Hospitalization in June 2010 at [facility] following a 3-hour bout of chest discomfort. Her boyfriend drove her to the ER where she was witnessed to have a ventricular fibrillation arrest that was successfully defibrillated to sinus rhythm. The ventricular fibrillation arrest was due to a ST segment elevation anterior wall AL. She underwent urgent cardiac catheterization by Dr. Arzate which revealed a 100% proximal LAD. There was mild to moderate atherosclerosis of the left circumflex and its major branches. There was mild to moderate ostial right coronary stenosis with mild to moderate atherosclerotic disease in the proximal mid right coronary artery. She was treated with aspiration thrombectomy and deployment of a 2.5 x 30 mm drug- eluting stent. She was noted to have an episode of ventricular arrhythmia while on the catheterization table (before her catheterization was performed) and was cardioverted from VT to sinus. During the hospital stay she was observed to have a few episodes of nonsustained ventricular tachycardia that were asymptomatic within the first 48-hours of admission with no significant arrhythmia as her hospitalization developed further. EF 35% at that time. 2. Hypertension 3. Dyslipidemia 4. Chronic tobacco abuse, emphysema 5. Iron deficiency anemia discomfort in June 2017 6. Celiac disease. Nutrition consultation previously recommended but declined. 7. Obesity 8. Family history of CAD 9. GERD 10. Hypothyroidism Allergies Allergy/AdvReac Type Severity Reaction Status Date / Time lisinopril AdvReac Unknown Cough Verified 07/11/20 21:51 Home Medications Medication Instructions Recorded Confirmed Type alendronate 70 mg PO WK 07/11/20 07/11/20 History aspirin [Aspirin Low Dose] 81 mg PO QAM 07/11/20 07/11/20 History atorvastatin 80 mg PO HS 07/11/20 07/11/20 History ferrous sulfate [iron] 325 mg PO BIDM 07/11/20 07/11/20 History hydralazine 25 mg PO TID 07/11/20 07/11/20 History levothyroxine 100 mcg PO QAM 07/11/20 07/11/20 History losartan 100 mg PO QAM 07/11/20 07/11/20 History metoprolol succinate 12.5 mg PO QAM 07/11/20 07/11/20 History mirtazapine 15 mg PO HS 07/11/20 07/11/20 History nitroglycerin 0.4 mg SUBLINGUAL DIRECTED PRN 07/11/20 07/11/20 History pantoprazole 40 mg PO QAM 07/11/20 07/11/20 History tramadol 50 mg PO DIRECTED PRN 07/11/20 07/11/20 History Patient History Social History Smoking Status: Current every day smoker Cigarettes Per Day: 8; Do You Dip or Chew Tobacco: No; Hx Alcohol Use: No Hx Substance Use: No Preferred Language: Sami Communication Ability: Effective Account Manager Relief Required: No Beliefs That Will Affect Care: None Current Living Situation: Alone Other Information That Helps Us Care for You: No Feels Safe at Home: Yes Safety Concerns: Feels Safe At This Time Assistive Devices: None Review of Systems Review of Systems: All systems reviewed & are unremarkable except as noted in HPI & below Physical Exam Physical Exam: General: Awake, alert and oriented x 3. No acute distress. HEENT: Normocephalic, atraumatic. Pupils equal, round and reactive to light and accommodation. Extraocular muscles are intact. Anicteric sclera. Moist mucous membranes. Neck: No JVD. No bruit. Cardiovascular: Regular. Positive S-4. Normal S-1 and S-2. No S-3. 3/6 mid to late systolic ejection murmur, greatest at the right sternal border, second intercostal space with radiation to the bilateral carotids. No rubs. Pulmonary: Clear to auscultation bilaterally. No rales, rhonchi, or wheezing. Abdomen: Bowel sounds x 4, soft. No rebound, guarding or tenderness. No organomegaly. Extremities: No clubbing, cyanosis or edema. +2 pedal pulses bilaterally. Skin: Warm and dry. Results & Data ([facility]) Vital Signs (Past 12 Hours) Vital Signs Temp Pulse Pulse Resp BP BP Pulse Ox 07/12/20 07:36 36.5 C 57 L 20 149/68 H 98 07/12/20 04:11 36.5 C 59 L 16 135/72 97 07/12/20 02:21 66 07/12/20 00:39 36.4 C L 65 20 180/74 H 99 Laboratory Results Laboratory Results - last 24 hr 07/11/20 07/11/20 07/11/20 20:58 20:58 20:58 WBC 7.90 RBC 5.03 Hgb 12.3 Hct 39.2 MCV 77.9 L MCH 24.5 L MCHC 31.4 L RDW Std Deviation 48.1 H RDW Coeff of Madeleine 16.9 H Plt Count 250 MPV 11.2 H Immature Gran % (Auto) 0.1 Neut % (Auto) 65.2 Lymph % (Auto) 23.7 [place] % (Auto) 9.9 Eos % (Auto) 0.6 Baso % (Auto) 0.5 Neut # (Auto) 5.15 Lymph # (Auto) 1.87 [place] # (Auto) 0.78 H Eos # (Auto) 0.05 Baso # (Auto) 0.04 Immature Gran # (Auto) 0.01 PT 10.9 INR 1.1 APTT 29.1 PTT Ratio 1.1 Sodium 139 Potassium 3.6 Chloride 107 Carbon Dioxide 26 Anion Gap 5.0 BUN 13 Creatinine 0.69 Est Cr Clr Drug Dosing 57.4 Est GFR ( Amer) 98.0 Est GFR (Non-Af Amer) 84.6 BUN/Creatinine Ratio 18.7 Glucose 84 Calcium 9.4 Magnesium Total Bilirubin 0.4 AST 17 ALT 24 Alkaline Phosphatase 91 Troponin I < 0.015 Total Protein 6.9 Albumin 3.4 Globulin 3.5 Albumin/Globulin Ratio 1.0 Triglycerides Cholesterol LDL Cholesterol, Calc VLDL Cholesterol, Calc HDL Cholesterol Cholesterol/HDL Ratio Lipase COVID-19 Eval Order SARS-CoV-2, RNA, NAAT 07/11/20 07/11/20 07/11/20 20:58 22:21 22:21 WBC RBC Hgb Hct MCV MCH MCHC RDW Std Deviation RDW Coeff of Madeleine Plt Count MPV Immature Gran % (Auto) Neut % (Auto) Lymph % (Auto) [place] % (Auto) Eos % (Auto) Baso % (Auto) Neut # (Auto) Lymph # (Auto) [place] # (Auto) Eos # (Auto) Baso # (Auto) Immature Gran # (Auto) PT INR APTT PTT Ratio Sodium Potassium Chloride Carbon Dioxide Anion Gap BUN Creatinine Est Cr Clr Drug Dosing Est GFR ( Amer) Est GFR (Non-Af Amer) BUN/Creatinine Ratio Glucose Calcium Magnesium 1.9 Total Bilirubin AST ALT Alkaline Phosphatase Troponin I Total Protein Albumin Globulin Albumin/Globulin Ratio Triglycerides Cholesterol LDL Cholesterol, Calc VLDL Cholesterol, Calc HDL Cholesterol Cholesterol/HDL Ratio Lipase 175 COVID-19 Eval Order Covid19 IDNow [facility] SARS-CoV-2, RNA, NAAT NEGATIVE 07/12/20 07/12/20 07/12/20 00:48 05:38 05:38 WBC 6.63 RBC 4.77 Hgb 11.5 L Hct 36.9 L MCV 77.4 L MCH 24.1 L MCHC 31.2 L RDW Std Deviation 47.5 H RDW Coeff of Madeleine 16.6 H Plt Count 245 MPV 10.6 H Immature Gran % (Auto) 0.2 Neut % (Auto) 56.3 Lymph % (Auto) 32.6 [place] % (Auto) 10.1 Eos % (Auto) 0.5 Baso % (Auto) 0.3 Neut # (Auto) 3.74 Lymph # (Auto) 2.16 [place] # (Auto) 0.67 H Eos # (Auto) 0.03 Baso # (Auto) 0.02 Immature Gran # (Auto) 0.01 PT INR APTT 28.3 PTT Ratio 1.1 Sodium Potassium Chloride Carbon Dioxide Anion Gap BUN Creatinine Est Cr Clr Drug Dosing Est GFR ( Amer) Est GFR (Non-Af Amer) BUN/Creatinine Ratio Glucose Calcium Magnesium Total Bilirubin AST ALT Alkaline Phosphatase Troponin I < 0.015 Total Protein Albumin Globulin Albumin/Globulin Ratio Triglycerides Cholesterol LDL Cholesterol, Calc VLDL Cholesterol, Calc HDL Cholesterol Cholesterol/HDL Ratio Lipase COVID-19 Eval Order SARS-CoV-2, RNA, NAAT 07/12/20 07/12/20 05:38 05:38 WBC RBC Hgb Hct MCV MCH MCHC RDW Std Deviation RDW Coeff of Madeleine Plt Count MPV Immature Gran % (Auto) Neut % (Auto) Lymph % (Auto) [place] % (Auto) Eos % (Auto) Baso % (Auto) Neut # (Auto) Lymph # (Auto) [place] # (Auto) Eos # (Auto) Baso # (Auto) Immature Gran # (Auto) PT INR APTT PTT Ratio Sodium 141 Potassium 3.7 Chloride 111 H Carbon Dioxide 28 Anion Gap 2.0 L BUN 13 Creatinine 0.59 L Est Cr Clr Drug Dosing 67.1 Est GFR ( Amer) 103.2 Est GFR (Non-Af Amer) 89.0 BUN/Creatinine Ratio 22.0 H Glucose 90 Calcium 8.2 L Magnesium Total Bilirubin AST ALT Alkaline Phosphatase Troponin I < 0.015 Total Protein Albumin Globulin Albumin/Globulin Ratio Triglycerides 79 Cholesterol 101 LDL Cholesterol, Calc 49 VLDL Cholesterol, Calc 16 HDL Cholesterol 36 Cholesterol/HDL Ratio 3 Lipase COVID-19 Eval Order SARS-CoV-2, RNA, NAAT Medications Administered Current Inpatient Medications Acetaminophen (Acetaminophen 325 Mg Tab) 650 mg PO Q4H PRN PRN Reason: Pain or Fever Stop: 08/11/20 00:53 Aspirin (Aspirin 81 Mg Ectab) 81 mg PO QA [facility] Stop: 08/11/20 08:59 Last Admin: 07/12/20 07:54 Dose: 81 mg Documented by: Atorvastatin Calcium (Atorvastatin 40 Mg Tab) 80 mg PO HS [facility] Stop: 08/11/20 20:59 Enoxaparin Sodium (Enoxaparin Inj 30 Mg/0.3 Ml Syr) 30 mg SQ QAM [facility] Stop: 08/11/20 08:59 Last Admin: 07/12/20 07:55 Dose: 30 mg Documented by: Ferrous Sulfate (Ferrous Sulfate 325 Mg Tab) 325 mg PO BIDM [facility] Stop: 08/11/20 07:59 Last Admin: 07/12/20 07:55 Dose: 325 mg Documented by: Hydralazine HCl (Hydralazine Tab 50 Mg Tab) 50 mg PO TID [facility] Stop: 08/11/20 08:59 Last Admin: 07/12/20 07:53 Dose: 50 mg Documented by: Potassium Chloride 40 meq/ (Dextrose/Sodium Chloride) 1,020 mls @ 40 mls/hr IV .Q24H [facility] Stop: 08/11/20 00:53 Last Admin: 07/12/20 01:31 Dose: 40 mls/hr Documented by: Lorazepam (Ativan) 0.25 mg in 0.5 mls @ 0.5 mls/min IV Q4H PRN PRN Reason: Anxiety Stop: 08/11/20 00:53 Promethazine HCl 6.25 mg/ (Sodium Chloride) 50.25 mls @ 201 mls/hr IV Q6H PRN PRN Reason: Nausea And Vomiting Stop: 08/11/20 00:53 Levothyroxine Sodium (Levothyroxine Sodium 100 Mcg Tablet) 100 mcg PO DAILYBB [facility] Stop: 08/11/20 06:29 Last Admin: 07/12/20 05:46 Dose: 100 mcg Documented by: Losartan Potassium (Losartan Potassium 50 Mg Tab) [facility] Stop: 08/11/20 01:04 Last Admin: 07/12/20 01:52 Dose: 100 mg Documented by: Metoprolol Succinate (Metoprolol Succ 25mg Ext Rel Tab) 12.5 [facility] [place] Stop: 08/11/20 08:59 Last Admin: 07/12/20 07:54 Dose: 12.5 mg Documented by: Mirtazapine (Mirtazapine Tab 15 Mg Tab) 15 mg PO HS [facility] Stop: 08/11/20 00:53 Last Admin: 07/12/20 01:52 Dose: 15 mg Documented by: Morphine Sulfate (Morphine Sulfate 2 Mg/Ml Carp) 2 mg IV Q3H PRN PRN Reason: Pain Stop: 07/26/20 00:53 Nitroglycerin (Nitroglycerin Sl 0.4 Mg/Tab Tab) 0.4 mg SL UD PRN PRN Reason: Chest Pain Stop: 08/11/20 00:53 Pantoprazole Sodium (Pantoprazole 40 Mg Tab) 40 mg PO QAM [place] Stop: 08/11/20 01:04 Last Admin: 07/12/20 01:52 Dose: 40 mg Documented by: Tramadol HCl (Tramadol Hcl 50 Mg Tablet) 25 - 50 mg PO Q4H PRN PRN Reason: Pain Stop: 08/11/20 00:53
[2020-07-12] MEDS ORDERED: ENOXAPARIN INJ 30 MG/0.3 ML SYR SQ SCH (09:00)
[2020-07-12] MEDS ORDERED: ASPIRIN 81 MG ECTAB PO SCH (09:00)
[2020-07-12] MEDS ORDERED: hydrALAZINE TAB 50 MG TAB PO SCH (09:00)
[2020-07-12] MEDS ORDERED: METOPROLOL SUCC 25MG EXT REL TAB PO SCH (09:00)
[2020-07-12] MEDS ORDERED: hydrALAZINE HCL 25 MG TAB PO STA (10:14)
--- NOTE | 2020-07-12 13:54 | Discharge Summary ---
Date of Service July 12, 2020 Admission HPI Per Admitting Provider History obtained from patient, family, and records. Medical history significant for diastolic dysfunction as per records, CAD status post stent, PVD as per records, PFO as per records, hypertension, hyperlipidemia, LORENA (CPAP intolerance), GERD, hypothyroidism, ongoing tobacco abuse. Last confinement June [address] elevation NC. Found to have LAD occlusion status post JOY placement. 1 day history of substernal discomfort, indigestion-like not exactly like episode from past heart attack, somewhat different from reflux. No cough, no S OB. SBP 200s at the ER. Patient does not check blood pressure at home. Denies unusual stress. Compliant with home medications. Denies OTC NSAID intake, dietary indiscretion. Spontaneous resolution of chest pain at the ER. Patient refused nitro medication prescribed by ER provider. Medical History as above Surgical History : BTL, laryngeal polyp removal, cataract surgery, cholecystectomy Family History : Breast cancer, stomach cancer, heart disease, MS Personal/Social history : 8 cigarettes a day, no EtOH intake, homemaker in her younger years Admission Exam Per Admitting Provider GENERAL: Comfortable, pleasant, slightly anxious, no respiratory distress SKIN: Normal color, warm HEENT: Bespectacled, Lynden palpebral conjunctivae, no ptosis, moist buccal mucosa NECK : Supple, no tenderness CHEST : Decreased breath sounds, no tenderness HEART : RRR, no obvious murmurs ABDOMEN: Some distention, nontender EXTREMITIES : No LE swelling/tenderness, no other conspicuous deformities noted NEUROLOGIC : Coherent, no facial asymmetry, no other gross focality Principal Diagnosis Chest pain secondary to hypertensive urgency. Discharge Exam GENERAL: Comfortable, pleasant female in no respiratory distress HEENT: NC/AT, Bespectacled, Lynden palpebral conjunctivae, no ptosis, moist buccal mucosa NECK : Supple, no tenderness CHEST : CTAB, no wheezing, rhonchi, crackles, no tenderness HEART : RRR, + syst. murmur ABDOMEN: Some distention, nontender, nondistended, + bowel sounds EXTREMITIES : No LE swelling/tenderness, moves extremities spontaneously NEUROLOGIC : Alert and oriented x3, no facial asymmetry, no other gross focality, moves extremities spontaneously SKIN: Normal color, warm Discharge Data Allergies Allergy/AdvReac Type Severity Reaction Status Date / Time lisinopril AdvReac Unknown Cough Verified 07/11/20 21:51 Consultations 07/11/20 21:39 ED Decision to Admit Stat 07/12/20 00:54 Consult Cardiology Routine Hospital Course (1) Chest pain: Secondary to hypertensive crisis Rule out ACS History CAD sp stent Continue home aspirin for CAD prevention Titrate home BP meds Troponin x3 negative Echo obtained -LV is normal in size, moderate concentric LVH, LV wall motion is normal, EF 65 to 70%. Grade 1 diastolic dysfunction. Aortic valve sclerosis mild, without significant aortic valvular stenosis. There is no other significant valvular disease. Cardiology consult RE chest pain, history of CAD Patient presented with hypertensive urgency associated with chest discomfort. Responded well to increased dose of hydralazine. Ischemic evaluation unremarkable with negative troponin, unremarkable EKG and no wall motion abnormality on echo. Recommend to discharge on increased dose of hydralazine 75 mg 3 times daily. Close follow-up with PCP and cardiology. Recommend BP checks at home. Diastolic dysfunction as per records, patient euvolemic Hx PVD LORENA - Patient to discuss with PCP about follow-up referral with sleep medicine to discuss newer options for LORENA given claustrophobia from old CPAP machines. Ongoing tobacco abuse - Nicotine patch as needed Hypothyroidism, euthyroid as of recent outpatient TSH DVT prophylaxis per Lovenox subcu Full code Patient's son ,Mr. Teddy Valles, can be reached at #[phone]. Total Time Total Time Spent Total Time Spent (In Minutes): 35 Total Time Includes: Examination of the Patient, Discharge Planning, Medication Reconciliation and Communication With Other Providers Discharge Plan Discharge Items Patient Disposition: Home - Self-Care Reason For Visit: CP Discharge Diagnosis: Chest pain secondary to hypertensive urgency. Activity: Per Instructions section Non-emergency contact: Primary Care Provider and Line Construction Engineer Call non-emergency contact if: you have any medication questions and your symptoms worsen Follow-up/Referrals: Osmel Lala MD [Outside Practitioners] - (Date & Time 07/19/2020 11:20 AM Provider Osmel Lala MD [facility] ) Diet: Heart Healthy Addtl Attending Provider Instructions: Follow-up with primary care doctor, the appointment was scheduled on July 19. Your blood pressure medication was adjusted, take hydralazine 75 mg three times a day, instead of 25 mg three times a day. Recommend to monitor your blood pressure at home, and write down these numbers. Make sure to bring the log of these numbers to your healthcare providers. You should also follow-up with cardiology, you will be contacted about the appointment. Pending Studies at Discharge: No Stand-Alone Forms: My [facility], Smoking Cessation Medications and DC Order Prescriptions: New hydralazine 25 mg Tablet 75 mg PO TID 14 Days Qty: 126 RF: 0 Continued atorvastatin 80 mg tablet 80 mg PO HS RF: 0 alendronate 70 mg tablet 70 mg PO WK RF: 0 aspirin [Aspirin Low Dose] 81 mg Tablet,Delayed Release (Dr/Ec) 81 mg PO QAM RF: 0 tramadol 50 mg Tablet 50 mg PO DIRECTED PRN (Reason: Pain) RF: 0 levothyroxine 100 mcg tablet 100 mcg PO QAM RF: 0 pantoprazole 40 mg tablet,delayed release (DR/EC) 40 mg PO QAM RF: 0 ferrous sulfate [iron] 325 mg (65 mg iron) Tablet 325 mg PO BIDM RF: 0 nitroglycerin 0.4 mg tablet, sublingual 0.4 mg sublingual DIRECTED PRN (Reason: Chest Pain) RF: 0 mirtazapine 15 mg tablet 15 mg PO HS RF: 0 metoprolol succinate 25 mg tablet extended release 24 hr 12.5 mg PO QAM RF: 0 losartan 100 mg tablet 100 mg PO QAM RF: 0 Discontinued hydralazine 25 mg tablet 25 mg PO TID RF: 0 Discharge Orders: Discharge Order (Routine); Ordered 07/12/20 Ordered By: Sanjiv Holden Admission Data Admit Date/Time: 07/11/20 22:49 Attending Provider: Sanjiv Holden Admit Provider: Donte Santoyo Primary Care Provider: PCP,NO Other Providers: Donte Santoyo ; Jeffrey Marie ; Latrell Dubon ; Kailash Luu ; Kuldip Stringer ; Dano Hayden ; Matt Galindo ; Odette Hilario ; Charlotte Vanegas ; Eulogio Call
[2020-07-12] MEDS ORDERED: hydrALAZINE HCL 25 MG TAB PO SCH (14:00)
[2020-07-12] MEDS ORDERED: ATORVASTATIN 40 MG TAB PO SCH (21:00)
--- NOTE | 2020-07-13 05:34 | Electrocardiogram Report ---
Test Reason : Blood Pressure : / mmHG Vent. Rate : 058 BPM Atrial Rate : 058 BPM P-R Int : 156 ms QRS Dur : 080 ms QT Int : 448 ms P-R-T Axes : 073 044 074 degrees QTc Int : 439 ms Sinus bradycardia Otherwise normal ECG When compared with ECG of 21-JUL-2010 05:11, Premature supraventricular complexes are no longer Present Non-specific change in ST segment in Anterior leads T wave inversion no longer evident in Anterior leads QT has shortened Confirmed by Enrique Anthony ([id number]) on 07/13/2020 5:33:49 AM Referred By: REFERRED SELF Confirmed By:Enrique Anthony
--- NOTE | 2020-07-13 05:50 | Electrocardiogram Report ---
Test Reason : Blood Pressure : / mmHG Vent. Rate : 065 BPM Atrial Rate : 065 BPM P-R Int : 158 ms QRS Dur : 076 ms QT Int : 482 ms P-R-T Axes : 076 030 061 degrees QTc Int : 501 ms Sinus rhythm with Premature atrial complexes with Aberrant conduction Prolonged QT Abnormal ECG When compared with ECG of 11-JUL-2020 20:30, Premature atrial complexes and Aberrant conduction are now Present QT has lengthened Confirmed by Enrique Anthony ([id number]) on 07/13/2020 5:50:10 AM Referred By: REFERRED SELF Confirmed By:Enrique Anthony
== END 2020-07-12 14:46 | disposition home or self-care (01) ==
LOC: ED 20:17 → 2S 20:17